=== PATIENT | female | born 2000 | race Two or more races ===

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

== ENCOUNTER 2021-07-16 20:04 | Emergency (ER) | payer MEDICAID, OTHER ==
[~2021-07-16] VITALS: Ht 152.4 cm; Wt 49.9 kg
[2021-07-16 20:19] VITALS: BP 126/85
== END 2021-07-16 21:20 | disposition home or self-care (01) ==
LOC: EDBD 20:04 → ER 20:07
DX: S80.12XA Contusion of left lower leg, initial encounter (principal); V43.52XA Car driver injured in collision with other type car in traffic accident, initial encounter; Y93.89 Activity, other specified; Y92.488 Other paved roadways as the place of occurrence of the external cause; Y99.8 Other external cause status
CPT/HCPCS: 73590

== ENCOUNTER 2021-11-22 16:05 | Emergency (ER) | payer OTHER ==
[~2021-11-22] VITALS: Ht 165.1 cm; Wt 51.1 kg
[2021-11-22 16:47] VITALS: BP 108/76
[2021-11-22] MEDS ORDERED: METH500T22 PO (17:10)
[2021-11-22] MEDS ORDERED: IBUP600T27 PO (17:10)
== END 2021-11-22 17:16 | disposition home or self-care (01) ==
LOC: ER 16:05
DX: S29.012A Strain of muscle and tendon of back wall of thorax, initial encounter (principal); M62.838 Other muscle spasm; V43.52XA Car driver injured in collision with other type car in traffic accident, initial encounter; Y93.89 Activity, other specified; Y92.488 Other paved roadways as the place of occurrence of the external cause; Y99.8 Other external cause status
CPT/HCPCS: 72070

== ENCOUNTER 2023-06-25 10:43 | Emergency (ER) | payer OTHER ==
[~2023-06-25] VITALS: Ht 152.4 cm; Wt 55.4 kg
[~2023-06-25 10:43] MED LIST: IBUP-1454 PO; METH-1181 PO
[2023-06-25] MEDS ORDERED: ACETAMINOPHEN 500 MG TAB PO ONE (11:45)
[2023-06-25 12:26] VITALS: BP 116/80; PULSE 70; RESP 16; TEMP 98.2; O2SAT 97
[2023-06-25] MEDS ORDERED: METH-1181 PO (12:26)
== END 2023-06-25 12:28 | disposition home or self-care (01) ==
LOC: ER 10:43
DX: S29.012A Strain of muscle and tendon of back wall of thorax, initial encounter (principal); V89.0XXA Person injured in unspecified motor-vehicle accident, nontraffic, initial encounter; Y93.89 Activity, other specified; Y92.89 Other specified places as the place of occurrence of the external cause; Y99.8 Other external cause status
CPT/HCPCS: 72070